=== PATIENT | female | born 1995 | race Caucasian/White ===

== ENCOUNTER 2023-10-09 10:26 | Outpatient (CLI) | payer OTHER, SELFPAY | END 2023-10-09 10:27 | disposition home or self-care (01) | PROVIDERS: PCP Internal Medicine; Visit Provider Obstetrics & Gynecology | DX: R53.83 Other fatigue (principal) | CPT/HCPCS: 36415; 84443 ==

== ENCOUNTER 2024-09-04 11:39 | Outpatient (CLI) | payer BC, SELFPAY ==
[2024-09-04 13:16] LABS: Basophils Percent Auto 0.3 % (0.2-1.2); Eosinophils Percent Auto 0.3 % (0-4.4); Hemoglobin 14.4 g/dL (12.0-15.0); Immature Granulocyte Absolute 0.03 K/mm3 (0.00-0.031); Immature Granulocyte Percent A 0.3 % (0-0.5); Lymphocytes Percent Auto 23.7 % (18.3-44.2); Mean Corpuscular HGB Conc 32.7 g/dl (32-36); Mean Corpuscular Volume 91.7 fl (80-100); Monocytes Absolute Auto 0.5 K/mm3 (0.1-0.6); Monocytes Percent Auto 5.5 % (2.6-8.5); Neutrophils Absolute Auto 6.2 K/mm3 (1.3-6.7); Neutrophils Percent Auto 69.9 % (45.5-73.1); Platelet Count Result 255 k/mm3 (150-375); Red Cell Distribution Width 12.1 % (11.5-14.5); White Blood Count 8.9 K/mm3 (4.5-10.0)
[2024-09-04 13:35] LABS: Glucose 1 Hour PP 50gm Dose 144 mg/dL
[2024-09-04 14:09] LABS: Hepatitis B Surface Antigen Negative (Negative)
[2024-09-04 14:22] LABS: Rubella IgG Antibody 95.1 IU/ML
[2024-09-04 14:23] LABS: HIV 1/2 Ab P24 Ag Result Negative (Negative)
[2024-09-04 14:36] LABS: Syphilis IgG/IgM Antibody Negative (Negative)
[2024-09-06 02:38] LABS: CMV IgG Antibody <0.60 U/mL
== END 2024-09-04 11:40 | disposition home or self-care (01) ==
PROVIDERS: PCP Internal Medicine; Visit Provider Obstetrics & Gynecology
DX: Z34.90 Encounter for supervision of normal pregnancy, unspecified, unspecified trimester (principal); N94.89 Other specified conditions associated with female genital organs and menstrual cycle; N91.2 Amenorrhea, unspecified
CPT/HCPCS: 36415; 81220; 81329; 82947; 84702; 85025; 86593; 86644; 86703; 86747; 86762; 86765; 86787; 86850; 86900; 86901; 87086; 87340; G0432

== ENCOUNTER 2024-09-13 07:06 | Outpatient (CLI) | payer BC, SELFPAY ==
[2024-09-13 07:37] LABS: Glucose Fasting 101 mg/dL
[2024-09-13 09:05] LABS: Glucose 1 Hour 166 mg/dL
[2024-09-13 10:35] LABS: Glucose 2 Hour 118 mg/dL
[2024-09-13 11:02] LABS: Glucose 3 Hour 101 mg/dL
== END 2024-09-13 07:07 | disposition home or self-care (01) ==
LOC: ANHLAB 07:06
PROVIDERS: PCP Internal Medicine; Visit Provider Obstetrics & Gynecology
DX: R73.09 Other abnormal glucose (principal)
CPT/HCPCS: 36415; 82951; 82952

== ENCOUNTER 2025-02-20 07:17 | Outpatient (CLI) | payer BC, SELFPAY ==
[2025-02-20 08:51] LABS: Hematocrit 39.1 % (37.0-47.0); Hemoglobin 13.3 g/dL (12.0-15.0); Mean Corpuscular HGB Conc 34.0 g/dl (32-36); Mean Corpuscular Hemoglobin 31.3 pg (26-34); Mean Corpuscular Volume 92.0 fl (80-100); Platelet Count Result 197 k/mm3 (150-375); Red Blood Count 4.25 M/mm3 (4.2-5.4); White Blood Count 9.8 K/mm3 (4.5-10.0)
[2025-02-20 09:09] LABS: Glucose 1 Hour PP 50gm Dose 127 mg/dL
[2025-02-20 09:35] LABS: Syphilis IgG/IgM Antibody Non-Reactive (Nonreactive)
[2025-02-20 09:47] LABS: HIV 1/2 Ab P24 Ag Result Negative (Negative)
== END 2025-02-20 07:18 | disposition home or self-care (01) ==
LOC: ANHLAB 07:18
PROVIDERS: PCP Internal Medicine; Visit Provider Student in an Organized Health Care Education/Training Program
DX: Z34.90 Encounter for supervision of normal pregnancy, unspecified, unspecified trimester (principal); Z3A.00 Weeks of gestation of pregnancy not specified
CPT/HCPCS: 36415; 82947; 85027; 86593; 86703; G0432